=== PATIENT | female | born 1995 | race Caucasian/White ===

== ENCOUNTER 2018-12-09 19:38 | Emergency (ER) | payer OTHER, MEDICAID ==
[~2018-12-09] VITALS: Ht 157.5 cm; Wt 63.5 kg
[~2018-12-09 19:38] MED LIST: ACETAMINOPHEN-1 EAC1 PO; AMBIEN 5 MG TABL5 MG PO; AZITHROMYCIN 2250 MG PO; BIRTH CONTROL; DARVOCET-N 1001 EACH PO; FLEXERIL PO; IBUPROFEN 400400 M1 PO; IBUPROFEN 800800 M1 PO; MELATONIN5 M1 PO; NAPROSYN375 MG PO; NAPROSYN500 MG PO; NOHOMEMEDICATIONS; NORCO 5-325 TA1 EACH PO; ORTHO TRI-CYCL1 EACH; PREDNISONE50 MG PO; PREVACID 30MG C30 M1 PO; VENTOLIN HFA 1818 GM INH; ZPAK PO
[2018-12-09 20:29] LABS: ABSOLUTE EOSINOPHILS 0.3 thou/uL (0.0-0.7); ABSOLUTE LYMPHOCYTES 3.1 thou/uL (0.8-5.3); ABSOLUTE MONOCYTES 0.7 thou/uL (0.0-1.2); ABSOLUTE NEUTROPHILS 5.3 thou/uL (1.6-8.1); BASOPHILS 0.4 %; EOSINOPHILS 3.2 %; HEMATOCRIT 38.5 % (37.0-47.0); HEMOGLOBIN 13.3 gm/dL (12.0-15.0); LYMPHOCYTES 32.9 %; MCH 30.4 pg (26.0-34.0); MCHC 34.7 g/dL (28.0-37.0); MCV 87.6 fL (80.0-100.0); MONOCYTES 7.4 %; MPV 7.8 fl. (7.2-11.1); NUCLEATED RBCS 0 /100WBC; PLATELET COUNT* 264 thou/uL (150-400); POLYS 56.1 %; RDW-CV 14.1 % (10.5-14.5); WBC 9.4 thou/uL (4.0-11.0)
[2018-12-09 20:37] LABS: ANION GAP 9 mmol/L (7-16); BUN 20 mg/dL (7-18); CALCIUM 8.9 mg/dL (8.5-10.1); CHLORIDE 106 mmol/L (98-107); CO2 27 mmol/L (21-32); CREATININE 0.9 mg/dL (0.6-1.3); GLUCOSE 92 mg/dL (70-99); POTASSIUM 3.8 mmol/L (3.5-5.1); SODIUM 142 mmol/L (136-145)
[2018-12-09 20:46] LABS: ALBUMIN 3.9 g/dL (3.4-5.0); ALKALINE PHOSPHATASE 72 U/L (46-116); LIPASE 69 U/L (73-393); SGOT 15 U/L (15-37); SGPT 23 U/L (30-65); TOTAL BILIRUBIN 0.2 mg/dL (<0.1-1.0); TOTAL PROTEIN 7.5 g/dL (6.4-8.2); TROPONIN-I LEVEL <0.06 ng/mL (<0.06)
[2018-12-09 21:01] LABS: URINE BILIRUBIN NEGATIVE (Negative); URINE BLOOD NEGATIVE (Negative); URINE CLARITY CLEAR; URINE COLOR YELLOW; URINE GLUCOSE-RANDOM NEGATIVE (Negative); URINE KETONES NEGATIVE (Negative); URINE LEUKOCYTES-REFLEX TRACE (Negative); URINE NITRITE-REFLEX NEGATIVE (Negative); URINE PROTEIN NEGATIVE (Negative); URINE SPECIFIC GRAVITY 1.015 (1.005-1.030); URINE UROBILINOGEN 0.2 E.U./dl (0.2-1.0)
[2018-12-09 21:16] LABS: BACTERIA-REFLEX >30 Many /HPF (None Seen); CASTS None Seen /LPF (None Seen); MUCUS 4-6 Moderate strn/LPF (None Seen); SQUAMOUS 4-10 Moderate /LPF (0-3); URINE RBC 0-2 Rare /HPF (0-2); URINE WBC-REFLEX 0-5 Rare /HPF (0-5)
[2018-12-09 21:17] LABS: AMORPHOUS PHOSPHATES Few /LPF (None Seen)
[2018-12-09] MEDS ORDERED: ACETAMINOPHEN-1 EAC1 PO (21:45)
[2018-12-09] MEDS ORDERED: ONDANSETRON HCL4 M2 PO (21:45)
[2018-12-09 22:16] VITALS: BP 130/80
== END 2018-12-09 22:10 | disposition home or self-care (01) ==
LOC: M.ERS 19:38
PROVIDERS: Physician Assistant
DX: R10.11 Right upper quadrant pain (principal); R10.31 Right lower quadrant pain; T83.32XA Displacement of intrauterine contraceptive device, initial encounter; R11.2 Nausea with vomiting, unspecified; G43.909 Migraine, unspecified, not intractable, without status migrainosus; G47.00 Insomnia, unspecified; F17.210 Nicotine dependence, cigarettes, uncomplicated; Z88.5 Allergy status to narcotic agent

== ENCOUNTER 2018-12-19 18:55 | Emergency (ER) | payer OTHER, MEDICAID ==
[~2018-12-19] VITALS: Ht 157.5 cm; Wt 65.8 kg
[~2018-12-19 18:55] MED LIST changes: +ONDANSETRON HCL4 M2 PO
[2018-12-19 19:50] LABS: ABSOLUTE BASOPHILS 0.1 thou/uL (0.0-0.2); ABSOLUTE EOSINOPHILS 0.3 thou/uL (0.0-0.7); ABSOLUTE LYMPHOCYTES 2.9 thou/uL (0.8-5.3); ABSOLUTE MONOCYTES 0.6 thou/uL (0.0-1.2); BASOPHILS 0.7 %; EOSINOPHILS 3.3 %; HEMATOCRIT 39.3 % (37.0-47.0); HEMOGLOBIN 13.4 gm/dL (12.0-15.0); LYMPHOCYTES 32.9 %; MCH 29.9 pg (26.0-34.0); MCHC 34.1 g/dL (28.0-37.0); MCV 87.8 fL (80.0-100.0); MONOCYTES 7.1 %; NUCLEATED RBCS 0 /100WBC; PLATELET COUNT* 280 thou/uL (150-400); RBC 4.47 mil/uL (4.20-5.00); WBC 8.9 thou/uL (4.0-11.0)
[2018-12-19 20:00] LABS: URINE BILIRUBIN NEGATIVE (Negative); URINE BLOOD NEGATIVE (Negative); URINE CLARITY CLEAR; URINE COLOR YELLOW; URINE GLUCOSE-RANDOM NEGATIVE (Negative); URINE KETONES NEGATIVE (Negative); URINE LEUKOCYTES-REFLEX NEGATIVE (Negative); URINE NITRITE-REFLEX NEGATIVE (Negative); URINE PROTEIN NEGATIVE (Negative); URINE SPECIFIC GRAVITY 1.015 (1.005-1.030); URINE UROBILINOGEN 0.2 E.U./dl (0.2-1.0)
[2018-12-19 20:00] LABS: CALCIUM 8.9 mg/dL (8.5-10.1); CREATININE 0.9 mg/dL (0.6-1.3)
[2018-12-19 20:05] LABS: ALBUMIN 3.9 g/dL (3.4-5.0); TOTAL BILIRUBIN 0.2 mg/dL (<0.1-1.0); TOTAL PROTEIN 7.3 g/dL (6.4-8.2)
[2018-12-19] MEDS ORDERED: CARAFATE 1 GM TA1 GM PO (22:53)
[2018-12-19] MEDS ORDERED: NORCO 5-325 TA1 EACH PO (22:53)
[2018-12-19 23:08] VITALS: BP 106/57
== END 2018-12-19 23:13 | disposition home or self-care (01) ==
LOC: M.ERS 18:55
PROVIDERS: Personal Emergency Response Attendant
DX: R10.11 Right upper quadrant pain (principal); R10.13 Epigastric pain; F17.210 Nicotine dependence, cigarettes, uncomplicated; G47.00 Insomnia, unspecified; G43.909 Migraine, unspecified, not intractable, without status migrainosus; Z88.8 Allergy status to other drugs, medicaments and biological substances